=== PATIENT | male | born 1990 | race Caucasian/White ===

== ENCOUNTER 2017-09-22 14:29 | Emergency (ER) | payer MEDICAID ==
[~2017-09-22] VITALS: Ht 167.6 cm; Wt 98.9 kg
[2017-09-22] MEDS ORDERED: LEVOFLOXACIN500 MG PO (15:08)
== END 2017-09-22 15:14 | disposition home or self-care (01) ==
LOC: ED 14:29
DX: J32.9 Chronic sinusitis, unspecified (principal); Z88.0 Allergy status to penicillin; H92.03 Otalgia, bilateral; K08.89 Other specified disorders of teeth and supporting structures